=== PATIENT | male | born 1975 | race Caucasian/White ===

== ENCOUNTER 2025-01-19 09:50 | Inpatient (IN) ==
[2025-01-19] MEDS: morphine 4 MG/ML VIAL IV ONE (10:30)
[2025-01-19 10:31] LABS: Basophils # (Auto) 0.02 K/mcL (0.00-0.30); Basophils % (Auto) 0.2 % (0.0-2.0); Eosinophils # (Auto) 0.04 K/mcL (0.00-0.70); Eosinophils % (Auto) 0.3 % (0.0-7.0); Hematocrit 32.7 % (40.1-51.0); Hemoglobin 11.2 g/dL (13.7-17.5); Lymphocytes % (Auto) 5.9 % (15.5-49.0); Mean Cell Volume 84.5 fL (80.0-100.0); Mean Corpuscular HGB Conc 34.3 g/dL (31.0-36.0); Mean Platelet Volume 9.5 fL (8.8-12.5); Monocytes # (Auto) 1.15 K/mcL (0.10-0.90); Monocytes % (Auto) 9.6 % (1.0-12.0); Neutrophils % (Auto) 83.7 % (38.0-78.0); Platelet Count 286 K/mcL (140-440); RBC 3.87 M/mcL (4.63-6.08); Red Cell Distribution Width 11.2 % (11.5-14.5)
[2025-01-19 10:41] LABS: Erythrocyte Sedimentation Rate 56 mm/hr (0-15)
[2025-01-19 10:52] LABS: ALT/SGPT 22 U/L (<40); AST/SGOT 17 U/L (<40); Albumin 3.5 gm/dL (3.2-5.2); Alkaline Phosphatase 78 U/L (39-117); Bilirubin,Total 0.5 mg/dL (0.1-1.0); Blood Urea Nitrogen 23 mg/dL (6-20); Calcium 9.2 mg/dL (8.6-10.4); Carbon Dioxide 23 mmol/L (22-30); Chloride 96 mmol/L (96-108); Globulin 3.5 gm/dL (2.2-3.7); Glomerular Filtration Rate 71; Glucose 286 mg/dL (70-105); Potassium 3.9 mmol/L (3.3-5.1); Sodium 132 mmol/L (133-145)
[2025-01-19] MEDS: VANCOMYCIN 1,500 MG in 0.9 % SODIUM CHLORIDE 500 ML IV ONE (11:26)
[2025-01-19] MEDS: PIPERACILLIN SODIUM/TAZOBACTAM 3.375 GM in DEXTROSE 5% IN WATER 50 ML IV ONE (12:01)
[2025-01-19] MEDS: CLINDAMYCIN IN 0.9 % SOD CHLOR 900 MG/50 ML BAG IV ONE (12:55)
[2025-01-19] MEDS ORDERED: DEXTROSE 31 GM ORAL.SUSP PO PRN (14:55)
[2025-01-19] MEDS ORDERED: HYDROmorphone 0.5 MG/0.5 ML SYRINGE IV PRN (14:55)
[2025-01-19] MEDS ORDERED: VANCOMYCIN PER PHARMACY IV SCH (14:55)
[2025-01-19] MEDS ORDERED: DEXTROSE 50% 50 ML VIAL IV PRN (14:55)
[2025-01-19] MEDS ORDERED: ONDANSETRON 4 MG/2 ML VIAL IV PRN (14:55)
[2025-01-19] MEDS: 0.9 % SODIUM CHLORIDE 10 ML SYRINGE IV SCH (16:17)
[2025-01-19 16:24] LABS: Hemoglobin A1C 9.5 % Hgb (4.0-6.0)
[2025-01-19] MEDS: INSULIN LISPRO 1 UNIT/0.01 ML UNIT SQ SCH (16:43)
[2025-01-19] MEDS: PIPERACILLIN SODIUM/TAZOBACTAM 4.5 GM in 0.9 % SODIUM CHLORIDE 100 ML IV SCH (16:44)
[2025-01-19] MEDS: ACETAMINOPHEN 325 MG TABLET PO PRN (16:52)
[2025-01-19] MEDS: INSULIN GLARGINE, HUMAN 1 UNIT/0.01 ML SQ SCH (21:11)
[2025-01-19] MEDS: SENNOSIDES 1 TABLET PO SCH (21:12)
[2025-01-19] MEDS: VANCOMYCIN 2,000 MG in 0.9 % SODIUM CHLORIDE 500 ML IV SCH (21:14)
[2025-01-19] MEDS: CLINDAMYCIN IN 0.9 % SOD CHLOR 900 MG/50 ML BAG IV SCH (21:28)
[2025-01-19] MEDS: 0.9 % SODIUM CHLORIDE 1,000 ML IV SCH (23:39)
[2025-01-20 06:05] LABS: Basophils # (Auto) 0.02 K/mcL (0.00-0.30); Basophils % (Auto) 0.2 % (0.0-2.0); Eosinophils # (Auto) 0.06 K/mcL (0.00-0.70); Eosinophils % (Auto) 0.6 % (0.0-7.0); Hematocrit 28.8 % (40.1-51.0); Hemoglobin 9.9 g/dL (13.7-17.5); Lymphocytes # (Auto) 0.97 K/mcL (1.50-4.80); Lymphocytes % (Auto) 9.7 % (15.5-49.0); Mean Cell Volume 84.7 fL (80.0-100.0); Mean Corpuscular HGB Conc 34.4 g/dL (31.0-36.0); Mean Platelet Volume 9.3 fL (8.8-12.5); Monocytes # (Auto) 0.92 K/mcL (0.10-0.90); Monocytes % (Auto) 9.2 % (1.0-12.0); Platelet Count 305 K/mcL (140-440); Red Cell Distribution Width 11.2 % (11.5-14.5); WBC 10.1 K/mcL (4.5-11.0)
[2025-01-20 06:38] LABS: ALT/SGPT 130 U/L (<40); AST/SGOT 102 U/L (<40); Albumin 3.2 gm/dL (3.2-5.2); Alkaline Phosphatase 153 U/L (39-117); Bilirubin,Direct 0.3 mg/dL (<0.3); Bilirubin,Total 0.5 mg/dL (0.1-1.0); Blood Urea Nitrogen 23 mg/dL (6-20); Calcium 8.5 mg/dL (8.6-10.4); Carbon Dioxide 22 mmol/L (22-30); Chloride 98 mmol/L (96-108); Globulin 3.3 gm/dL (2.2-3.7); Glomerular Filtration Rate 89; Glucose 165 mg/dL (70-105); Lactate Dehydrogenase 156 U/L (135-225); Phosphorous 3.3 mg/dL (2.5-4.5); Potassium 3.5 mmol/L (3.3-5.1); Sodium 133 mmol/L (133-145); Triglycerides 66 mg/dL (<150); Uric Acid 3.6 mg/dL (2.5-8.0)
[2025-01-20] MEDS: VANCOMYCIN 2,000 MG in DEXTROSE 5% IN WATER 500 ML IV SCH (10:07)
[2025-01-20] MEDS ORDERED: MIDAZOLAM 2 MG/2 ML VIAL ONE (11:33)
[2025-01-20] MEDS ORDERED: PROPOFOL 200 MG/20 ML VIAL IV ONE (11:33)
[2025-01-20] MEDS ORDERED: ONDANSETRON 4 MG/2 ML VIAL ONE (11:34)
[2025-01-20] MEDS ORDERED: METOCLOPRAMIDE 10 MG/2 ML VIAL ONE (11:34)
[2025-01-20] MEDS ORDERED: FAMOTIDINE/PF 20 MG/2 ML VIAL IV ONE (11:34)
[2025-01-20] MEDS ORDERED: LIDOCAINE 2% PF 5 ML VIAL ONE (11:34)
[2025-01-20] MEDS ORDERED: GLYCOPYRROLATE 0.2 MG/ML VIAL IV ONE (11:34)
[2025-01-20] MEDS ORDERED: DEXAMETHASONE 10 MG/ML VIAL ONE (11:34)
[2025-01-20] MEDS ORDERED: KETAMINE 50 MG/ML Syringe IV ONE (12:23)
[2025-01-20] MEDS ORDERED: fentaNYL 100 MCG/2 ML VIAL IV PRN (12:51)
[2025-01-20] MEDS ORDERED: IPRATROPIUM/ALBUTEROL 3 ML AMPUL.NEB NEB PRN (12:51)
[2025-01-20] MEDS ORDERED: HYDROmorphone 0.5 MG/0.5 ML SYRINGE IV PRN (12:51)
[2025-01-20] MEDS ORDERED: DROPERIDOL 5 MG/2 ML VIAL IV PRN (12:51)
[2025-01-20] MEDS: oxyCODONE IR 5 MG TABLET PO PRN (13:42)
[2025-01-20] MEDS: LACTATED RINGERS 1,000 ML IV SCH (14:39)
[2025-01-20] MEDS: 0.9 % SODIUM CHLORIDE 10 ML SYRINGE IV SCH (14:56)
[2025-01-21 05:38] LABS: Basophils # (Auto) 0.02 K/mcL (0.00-0.30); Basophils % (Auto) 0.2 % (0.0-2.0); Eosinophils # (Auto) 0.07 K/mcL (0.00-0.70); Eosinophils % (Auto) 0.6 % (0.0-7.0); Hematocrit 28.2 % (40.1-51.0); Hemoglobin 9.7 g/dL (13.7-17.5); Lymphocytes # (Auto) 0.79 K/mcL (1.50-4.80); Lymphocytes % (Auto) 7.2 % (15.5-49.0); Mean Cell Volume 84.7 fL (80.0-100.0); Mean Corpuscular HGB Conc 34.4 g/dL (31.0-36.0); Mean Platelet Volume 9.4 fL (8.8-12.5); Monocytes % (Auto) 6.3 % (1.0-12.0); Neutrophils % (Auto) 85.3 % (38.0-78.0); Platelet Count 320 K/mcL (140-440); RBC 3.33 M/mcL (4.63-6.08); Red Cell Distribution Width 11.3 % (11.5-14.5)
[2025-01-21 06:30] LABS: ALT/SGPT 80 U/L (<40); AST/SGOT 34 U/L (<40); Albumin/Globulin Ratio 0.9 (1.0-2.3); Alkaline Phosphatase 145 U/L (39-117); Bilirubin,Direct < 0.2 mg/dL (0-0.3); Bilirubin,Total 0.4 mg/dL (0.1-1.0); Blood Urea Nitrogen 18 mg/dL (6-20); Calcium 8.2 mg/dL (8.6-10.4); Carbon Dioxide 22 mmol/L (22-30); Chloride 99 mmol/L (96-108); Globulin 3.5 gm/dL (2.2-3.7); Glomerular Filtration Rate 101; Glucose 297 mg/dL (70-105); Lactate Dehydrogenase 766 U/L (135-225); Phosphorous 3.1 mg/dL (2.5-4.5); Potassium 4.4 mmol/L (3.3-5.1); Sodium 132 mmol/L (133-145); Triglycerides 89 mg/dL (<150); Uric Acid 2.9 mg/dL (2.5-8.0)
[2025-01-22 05:47] LABS: Basophils # (Auto) 0.01 K/mcL (0.00-0.30); Basophils % (Auto) 0.1 % (0.0-2.0); Eosinophils # (Auto) 0.07 K/mcL (0.00-0.70); Eosinophils % (Auto) 0.8 % (0.0-7.0); Hematocrit 30.6 % (40.1-51.0); Hemoglobin 10.4 g/dL (13.7-17.5); Lymphocytes # (Auto) 1.04 K/mcL (1.50-4.80); Lymphocytes % (Auto) 12.2 % (15.5-49.0); Mean Cell Volume 84.5 fL (80.0-100.0); Mean Platelet Volume 9.4 fL (8.8-12.5); Monocytes # (Auto) 0.74 K/mcL (0.10-0.90); Monocytes % (Auto) 8.7 % (1.0-12.0); Neutrophils % (Auto) 77.1 % (38.0-78.0); Platelet Count 355 K/mcL (140-440); RBC 3.62 M/mcL (4.63-6.08); Red Cell Distribution Width 11.3 % (11.5-14.5); WBC 8.5 K/mcL (4.5-11.0)
[2025-01-22 06:12] LABS: ALT/SGPT 64 U/L (<40); AST/SGOT 37 U/L (<40); Albumin/Globulin Ratio 0.9 (1.0-2.3); Alkaline Phosphatase 125 U/L (39-117); Bilirubin,Direct 0.3 mg/dL (<0.3); Bilirubin,Total 0.4 mg/dL (0.1-1.0); Blood Urea Nitrogen 30 mg/dL (6-20); Calcium 8.3 mg/dL (8.6-10.4); Carbon Dioxide 23 mmol/L (22-30); Chloride 101 mmol/L (96-108); Globulin 3.3 gm/dL (2.2-3.7); Glomerular Filtration Rate 38; Glucose 213 mg/dL (70-105); Lactate Dehydrogenase 170 U/L (135-225); Phosphorous 3.2 mg/dL (2.5-4.5); Potassium 4.1 mmol/L (3.3-5.1); Sodium 134 mmol/L (133-145); Triglycerides 123 mg/dL (<150); Uric Acid 4.1 mg/dL (2.5-8.0)
[2025-01-22 07:54] LABS: Hemoglobin A1C 9.5 % Hgb (4.0-6.0)
[2025-01-22] MEDS: INSULIN LISPRO 1 UNIT/0.01 ML UNIT SQ SCH (07:56)
[2025-01-22] MEDS: 0.9 % SODIUM CHLORIDE 1,000 ML IV ONE (09:47)
[2025-01-22] MEDS: DAPTOmycin 500 MG VIAL IV SCH (10:49)
[2025-01-22 11:50] LABS: Bacteria,Urine 0 /hpf (0); Urine RBC 0 /hpf (0-3); Urine Squamous Epithelial Cell 1 /hpf (0-4); Urine WBC 2 /hpf (0-4)
[2025-01-22] MEDS: PIPERACILLIN SODIUM/TAZOBACTAM 4.5 GM in 0.9 % SODIUM CHLORIDE 100 ML IV SCH (15:10)
[2025-01-22] MEDS: ENOXAPARIN 40 MG/0.4 ML SYRINGE SQ SCH (15:19)
[2025-01-22] MEDS: INSULIN GLARGINE, HUMAN 1 UNIT/0.01 ML SQ SCH (20:33)
[2025-01-23 06:59] LABS: ALT/SGPT 96 U/L (<40); AST/SGOT 99 U/L (<40); Albumin 3.1 gm/dL (3.2-5.2); Albumin/Globulin Ratio 0.9 (1.0-2.3); Alkaline Phosphatase 231 U/L (39-117); Bilirubin,Direct 0.3 mg/dL (<0.3); Bilirubin,Total 0.5 mg/dL (0.1-1.0); Blood Urea Nitrogen 33 mg/dL (6-20); Calcium 8.8 mg/dL (8.6-10.4); Carbon Dioxide 23 mmol/L (22-30); Chloride 104 mmol/L (96-108); Globulin 3.4 gm/dL (2.2-3.7); Glomerular Filtration Rate 29; Glucose 171 mg/dL (70-105); Lactate Dehydrogenase 212 U/L (135-225); Phosphorous 4.5 mg/dL (2.5-4.5); Sodium 140 mmol/L (133-145); Triglycerides 145 mg/dL (<150); Uric Acid 5.1 mg/dL (2.5-8.0)
[2025-01-23] MEDS: ceFAZolin 1 GM VIAL IV SCH (08:44)
[2025-01-23] MEDS: 0.9 % SODIUM CHLORIDE 1,000 ML IV SCH (09:17)
[2025-01-23 10:00] LABS: Appearance,Urine CLEAR (Clear); Bilirubin,Urine Negative (Negative); Color,Urine STRAW; Glucose,Urine (UA) Negative (Negative); Ketones,Urine Negative (Negative); Leukocyte Esterase,Urine Negative /uL (Negative); Nitrate,Urine Negative (Negative); Protein,Urine Negative (Negative); Specific Gravity,Urine 1.006 (1.000-1.035); Urine Blood 0.03 mg/dL (Negative); Urine RBC 2 /hpf (0-3); Urine Squamous Epithelial Cell 0 /hpf (0-4); Urine WBC 0 /hpf (0-4); Urobilinogen,Urine Negative
[2025-01-23 10:04] LABS: Sodium, Urine Random 49 mmol/L
[2025-01-23 10:16] LABS: Creatinine, Spot Urine 49.8 mg/dL (39.0-259.0); Pro:Crea Ratio 0.14 (<0.20)
[2025-01-24 07:21] LABS: ALT/SGPT 52 U/L (<40); AST/SGOT 26 U/L (<40); Albumin 3.1 gm/dL (3.2-5.2); Albumin/Globulin Ratio 0.9 (1.0-2.3); Alkaline Phosphatase 174 U/L (39-117); Bilirubin,Direct < 0.2 mg/dL (0-0.3); Bilirubin,Total 0.2 mg/dL (0.1-1.0); Blood Urea Nitrogen 34 mg/dL (6-20); Carbon Dioxide 23 mmol/L (22-30); Chloride 105 mmol/L (96-108); Globulin 3.5 gm/dL (2.2-3.7); Glomerular Filtration Rate 29; Glucose 161 mg/dL (70-105); Lactate Dehydrogenase 168 U/L (135-225); Phosphorous 4.6 mg/dL (2.5-4.5); Potassium 4.1 mmol/L (3.3-5.1); Sodium 140 mmol/L (133-145); Triglycerides 140 mg/dL (<150); Uric Acid 5.7 mg/dL (2.5-8.0)
[2025-01-24 08:25] VITALS: TEMP 97.8; O2SAT 98
[2025-01-24] MEDS: INSULIN GLARGINE, HUMAN 1 UNIT/0.01 ML SQ SCH (08:32)
[2025-01-24] MEDS: amLODIPine 5 MG TABLET PO SCH ×2 (09:29→09:57)
== END 2025-01-24 10:49 | disposition home or self-care (01) | DRG 616 ==
LOC: ED 09:50 → MEDSUR 14:33
PROVIDERS: ADMIT Internal Medicine; ATTEND Internal Medicine